=== PATIENT | male | born 1970 | race Caucasian/White ===

== ENCOUNTER → 2017-08-02 | Outpatient (CLI) | payer BC ==
[~2017-08-02] MED LIST: ALPRAZOLAM PO; DICLOFENAC; DICYCLOMINE HCL20 MG PO; KEFLEX500 M1 PO; NO MEDICATIONS; SIMVASTATIN20 MG PO; VICODIN 5/500 T1 TAB PO
--- NOTE | ~2017-08-02 | US5 ---
[facility] A Service of [facility] RADIOLOGY TEXT RESULTS PATIENT: DIPAK CARDOZA LOCATION: [facility] : [birth year] UNIT #: [id number] AGE: [address]: Leila Harris MD SEX: M ORDER DR: [id number] [address] [id number] O MR#: [id number] Acc #: [id number] NAME: DIPAK CARDOZA : 1970 SEX: M STUDY DATE/TIME: 08/02/2017 8:31 UNIT: [facility] ROOM: STUDY DESCRIPTION: US Abdominal Complete Attending Physician: Leila Harris M.D. Referring Physician: Leila Harris M.D. Ordering Physician: Leila Harris M.D. Primary Care Physician: Mecca Broderick M.D. MEDICAL IMAGING REPORT This report is preliminary unless electronic signature is present. EXAM Abdominal ultrasound complete, 08/02/2017. HISTORY Abnormally elevated liver enzymes, elevated bilirubin levels for 1 week. FINDINGS The liver demonstrates an increase in echotexture with attenuation of the ultrasound beam characteristic of fatty infiltration. No cystic or solid mass lesions were seen within the liver. The intrahepatic bile ducts are not dilated. The gallbladder is normal with no evidence of cholelithiasis, wall thickening or pericholecystic fluid. The exam is limited as the common bile duct and the pancreas were not visualized due to excessive bowel gas. The spleen measures 10.2 cm in greatest diameter. The visualized portions of the abdominal aorta and inferior vena cava are within normal limits. The kidneys are normal bilaterally. IMPRESSION 1. Fatty infiltration of the liver. 2. Normal gallbladder. 3. Limited examination as the pancreas and common bile duct were obscured by bowel gas. Dictated by... Chuck Zimmer M.D. THIS IS AN ELECTRONICALLY VERIFIED REPORT Chuck Zimmer M.D. at 08/03/2017 8:10 AM LUIS/donta TD: 08/02/2017 17:20 JOB #: [id number] [facility] A Service of [facility] RADIOLOGY TEXT RESULTS PATIENT: DIPAK CARDOZA LOCATION: [facility] #: [id number] : [birth year] UNIT #: [id number] AGE: [address]: Leila Harris MD SEX: M ORDER DR: MEDICAL IMAGING REPORT Page 1 of 1
== END | disposition home or self-care (01) ==
LOC: SGUS 08:08
DX: R17 Unspecified jaundice (principal); K76.0 Fatty (change of) liver, not elsewhere classified
CPT/HCPCS: 76700